=== PATIENT | male | born 1995 | race Caucasian/White ===

== ENCOUNTER 2017-06-03 19:33 | Emergency (ER) | payer OTHER ==
[~2017-06-03] VITALS: Ht 177.8 cm; Wt 54.4 kg
--- NOTE | 2017-06-03 19:40 | NUR ---
TO BED 6 A 22 YO MALE PATIENT BIBSELF FROM HOME, PT C/O "LT TESTICULAR PAIN X2 DAYS." VSS. NAD NOTED. AMBULATORY. COMFORT MEASURES RENDERED.
--- NOTE | 2017-06-03 19:45 | NUR ---
DR GARCIA AT BEDSIDE.
--- NOTE | 2017-06-03 19:50 | NUR ---
JONATHAN ALONZO AT BEDSIDE.
[2017-06-03 19:57] LABS: APPEARANCE,URINE Slightly Cloudy (CLEAR); BILIRUBIN,URINE Negative (NEGATIVE); BLOOD, URINE Moderate Ery/uL (NEGATIVE); COLOR,URINE Yellow (YELLOW); KETONES,URINE 40 (NEGATIVE); LEUKOCYTE ESTERASE ,URINE Negative (NEGATIVE); NITRITE, URINE Negative (NEGATIVE); PH,URINE 6.5 (5.0-8.0); PROTEIN,URINE Negative (NEGATIVE); UGLUCOSE Negative (NEGATIVE)
[2017-06-03 20:12] LABS: BACTERIA,URINE Few /HPF (None Seen); RBC,URINE 51-80 /HPF (0-2); SQUAMOUS EPITHELIAL CELL,UR Few /HPF (None Seen); URINE AMORPHOUS URATE Few /HPF (None Seen)
[2017-06-03] MEDS ORDERED: IV NS 0.9% 500 ML BAG IV ONE (20:30)
[2017-06-03] MEDS ORDERED: KETOROLAC TROMETHAMINE INJ 30 MG/ML VIAL IV ONE (20:30)
[2017-06-03] MEDS ORDERED: KETOROLAC TROMETHAMINE 15 MG/ML VIAL ONE (20:37)
--- NOTE | 2017-06-03 20:40 | NUR ---
STARTED A SALINE LOCK ON THE LAC G18, BLOOD DRAWN AND SENT TO LAB.
--- NOTE | 2017-06-03 20:44 | NUR ---
MEDICATED PATIENT ORDERED BY DR GARCIA.
[2017-06-03 20:46] LABS: BASOPHILS # (AUTO) 0.1 /CMM (0.0-0.2); BASOPHILS % (AUTO) 1.8 % (0.0-2.0); EOSINOPHILS # (AUTO) 0.1 /CMM (0.0-0.7); EOSINOPHILS % (AUTO) 1.4 % (0.0-6.0); HEMATOCRIT 40 % (39-51); HEMOGLOBIN 14.1 g/dL (13.5-17.5); LYMPHOCYTES # (AUTO) 2.5 /CMM (0.8-4.8); LYMPHOCYTES % (AUTO) 30.5 % (20.0-44.0); MEAN CORPUSCULAR HEMOGLOBIN 31 PG (26.0-33.0); MEAN CORPUSCULAR HGB CONC 35 g/dl (31.0-36.0); MEAN CORPUSCULAR VOLUME 88 fL (80-96); MONOCYTES # (AUTO) 0.7 /CMM (0.1-1.30); MONOCYTES % (AUTO) 8.5 % (2.0-12.0); NEUTROPHILS # (AUTO) 4.7 /CMM (1.8-8.9); NEUTROPHILS % (AUTO) 57.8 % (43.0-81.0); PLATELET COUNT (AUTO) 269 /CMM (150-450); RDW COEFFICIENT OF VARIATION 12.3 (11.5-15.0); RED BLOOD CELL COUNT(AUTO) 4.53 MIL/uL (4.5-6.0); WHITE BLOOD COUNT (AUTO) 8.1 K/uL (4.3-11.0)
[2017-06-03 21:09] LABS: CALCIUM, SERUM 9.4 mg/dL (8.5-10.1); CREATININE 1.1 mg/dL (0.6-1.3); POTASSIUM 3.6 mmol/L (3.5-5.1)
[2017-06-03] MEDS ORDERED: ONDANSETRON HCL/PF 4 MG/2 ML VIAL ONE (21:43)
[2017-06-03] MEDS ORDERED: TAMSULOSIN 0.4 MG CAP.SR.24H ONE (21:44)
[2017-06-03] MEDS ORDERED: HYDROMORPHONE INJ 0.5 MG/0.5 ML SYRINGE ONE (21:44)
[2017-06-03] MEDS ORDERED: ONDANSETRON HCL/PF 4 MG/2 ML VIAL IVP ONE (22:00)
[2017-06-03] MEDS ORDERED: HYDROMORPHONE INJ 2 MG/ML DISP.SYRIN IV ONE (22:00)
[2017-06-03] MEDS ORDERED: TAMSULOSIN 0.4 MG CAP.SR.24H PO ONE (22:00)
--- NOTE | 2017-06-03 22:16 | NUR ---
IV removed. Catheter intact and site benign. Pressure and 4x4 applied to site. No bleeding noted. Patient discharged to home in stable condition. Written and verbal after care instructions given. Patient verbalizes understanding of instruction. Patient is ambulatory with steady gait, accompanied by aunt. Instructed patient not to drive. vss. nad noted. no further complaints.
[2017-06-03 22:17] VITALS: BP 125/74
== END 2017-06-03 22:18 | disposition home or self-care (01) ==
LOC: ER 19:42
DX: N20.1 Calculus of ureter (principal)
CPT/HCPCS: 36415; 76870-TC; 80048-TC; 81000-TC; 85025-TC; 87086-TC; 87491; 87591; A4606; J1885; J2405; J7040; Z7610

== ENCOUNTER 2017-10-22 21:55 | Emergency (ER) | payer OTHER ==
[~2017-10-22] VITALS: Ht 175.3 cm; Wt 54.4 kg
[2017-10-22 22:05] VITALS: BP 109/69
[2017-10-22 22:29] LABS: APPEARANCE,URINE CLEAR (CLEAR); BILIRUBIN,URINE NEGATIVE (NEGATIVE); BLOOD, URINE TRACE Ery/uL (NEGATIVE); COLOR,URINE YELLOW (YELLOW); KETONES,URINE TRACE (NEGATIVE); LEUKOCYTE ESTERASE ,URINE NEGATIVE (NEGATIVE); NITRITE, URINE NEGATIVE (NEGATIVE); PROTEIN,URINE NEGATIVE (NEGATIVE); UGLUCOSE NEGATIVE (NEGATIVE)
[2017-10-22] MEDS ORDERED: HYDROCODONE/APAP 5/325MG 1 EACH TABLET ONE ×2 (22:36→23:55)
--- NOTE | 2017-10-22 22:39 | NUR ---
US TECH BEDSIDE
[2017-10-22 22:48] LABS: BACTERIA,URINE Rare /HPF (None Seen); MUCUS,URINE Few /LPF (None Seen); RBC,URINE 0-2 /HPF (0-2); SQUAMOUS EPITHELIAL CELL,UR Rare /HPF (None Seen); WBC,URINE 0-2 /HPF (0-3)
[2017-10-22] MEDS ORDERED: HYDROCODONE/APAP 5/325MG 1 EACH TABLET PO ONE (23:00)
[2017-10-22] MEDS ORDERED: AZITHROMYCIN 250 MG TABLET ONE (23:55)
[2017-10-22] MEDS ORDERED: CEFTRIAXONE 500 MG VIAL ONE (23:55)
[2017-10-22] MEDS ORDERED: ONDANSETRON 4 MG TAB.RAPDIS ONE (23:56)
[2017-10-22] MEDS ORDERED: LIDOCAINE 0.5% HCL 50 ML VIAL ONE (23:56)
[2017-10-23] MEDS ORDERED: HYDROCODONE/APAP 5/325MG 1 EACH TABLET PO ONE
[2017-10-23] MEDS ORDERED: ONDANSETRON 4 MG TAB.RAPDIS SL ONE
[2017-10-23] MEDS ORDERED: CEFTRIAXONE 1 G VIAL IM ONE
[2017-10-23] MEDS ORDERED: AZITHROMYCIN 250 MG TABLET PO ONE
== END 2017-10-23 00:14 | disposition home or self-care (01) ==
LOC: ER 22:00
DX: F17.200 Nicotine dependence, unspecified, uncomplicated (principal); N45.1 Epididymitis
CPT/HCPCS: 76870; 81001; 96372; 99285; 99406; A4606; J0696; J3490; Q0162; Z7610; 81000-TC

== ENCOUNTER 2019-04-10 03:03 | Emergency (ER) | payer MEDICAID, OTHER ==
[~2019-04-10] VITALS: Ht 177.8 cm; Wt 59.0 kg
--- NOTE | 2019-04-10 03:15 | NUR ---
PT AAOX4. AMBUALTORY. C/O BILAT EAR PRESSURE X4HRS. "I HAD A FEVER EARLIER AND I FELT PRESSURE IN MY EAR" PLACED ON MONITOR AND PULSE OX.
[2019-04-10] MEDS ORDERED: methylPREDNISolone SOD SUCC 125 MG/2ML VIAL IV ONE (04:00)
[2019-04-10] MEDS ORDERED: KETOROLAC TROMETHAMINE INJ 30 MG/ML VIAL IV ONE (04:00)
[2019-04-10] MEDS ORDERED: IV NS 0.9% 1,000 ML BAG IV ONE (04:00)
[2019-04-10] MEDS ORDERED: METOCLOPRAMIDE HCL 10 MG/2 ML VIAL IV ONE (04:00)
[2019-04-10] MEDS ORDERED: SUMATRIPTAN SUCCINATE 25 MG TABLET PO ONE (04:00)
[2019-04-10] MEDS ORDERED: KETOROLAC TROMETHAMINE 15 MG/ML VIAL ONE (04:11)
[2019-04-10] MEDS ORDERED: methylPREDNISolone SOD SUCC 125 MG/2ML VIAL ONE (04:11)
[2019-04-10] MEDS ORDERED: METOCLOPRAMIDE HCL 10 MG/2 ML VIAL ONE (04:12)
[2019-04-10] MEDS ORDERED: SUMATRIPTAN SUCCINATE 25 MG TABLET ONE (04:12)
--- NOTE | 2019-04-10 04:52 | NUR ---
Patient discharged to home in stable condition. Written and verbal after care instructions given. Patient verbalizes understanding of instruction and RX. IV removed. Catheter intact and site benign. Pressure and 4x4 applied to site. No bleeding noted. PT ambulatory with a steady gait.
[2019-04-10 04:53] VITALS: BP 124/68
== END 2019-04-10 04:54 | disposition home or self-care (01) ==
LOC: ER 03:04
DX: G43.909 Migraine, unspecified, not intractable, without status migrainosus (principal); F17.200 Nicotine dependence, unspecified, uncomplicated
CPT/HCPCS: 87804 ×2; 96374; 96375; 99283; J1885; J2765; J2930; J7030

== ENCOUNTER 2021-11-15 19:37 | Emergency (ER) | payer MEDICAID, OTHER ==
[~2021-11-15] VITALS: Ht 175.3 cm; Wt 65.8 kg
--- NOTE | 2021-11-15 20:20 | NUR ---
BIBS C/O RLQ PAIN XFEW MINS [employer]. -N/V/D. PT AWAKE A/OX3. TOLERATING R/A WELL WITH NO RESP DISTRESS OR SOB. SAFETY MEASURES IN PLACE.
--- NOTE | 2021-11-15 20:40 | NUR ---
PT TAKEN TO CT VIA KOBE
--- NOTE | 2021-11-15 20:45 | NUR ---
PT RETURNED TO ER BED [address]
[2021-11-15 20:46] LABS: BASOPHILS # (AUTO) 0.1 K/uL (0.0-0.2); BASOPHILS % (AUTO) 0.7 % (0.0-2.0); EOSINOPHILS % (AUTO) 1.9 % (0.0-6.0); HEMATOCRIT 44 % (39-51); LYMPHOCYTES # (AUTO) 2.9 K/uL (0.8-4.8); LYMPHOCYTES % (AUTO) 34.4 % (20.0-44.0); MEAN CORPUSCULAR HGB CONC 34 g/dl (31.0-36.0); MEAN CORPUSCULAR VOLUME 90 fL (80-96); MONOCYTES # (AUTO) 0.7 K/uL (0.1-1.30); MONOCYTES % (AUTO) 7.9 % (2.0-12.0); NEUTROPHILS # (AUTO) 4.7 K/uL (1.8-8.9); NEUTROPHILS % (AUTO) 55.1 % (43.0-81.0); PLATELET COUNT (AUTO) 289 K/uL (150-450); RED BLOOD CELL COUNT(AUTO) 4.87 MIL/uL (4.5-6.0); WHITE BLOOD COUNT (AUTO) 8.5 K/uL (4.3-11.0)
--- NOTE | 2021-11-15 21:00 | NUR ---
URINE COLLECTED AND SENT TO LAB
[2021-11-15 21:04] LABS: CALCIUM, SERUM 9.4 mg/dL (8.5-10.1); POTASSIUM 4.2 mmol/L (3.5-5.1)
[2021-11-15 21:12] LABS: ALBUMIN 4.6 g/dL (3.4-5.0); BILIRUBIN,DIRECT 0.1 mg/dL (0.0-0.2); BILIRUBIN,TOTAL 0.2 mg/dL (0.2-1.0); TOTAL PROTEIN, SERUM 8.6 g/dL (6.4-8.2)
[2021-11-15] MEDS ORDERED: IBUP-1957 PO (21:28)
[2021-11-15] MEDS ORDERED: TAMS-12 PO (21:28)
[2021-11-15] MEDS ORDERED: KETOROLAC TROMETHAMINE INJ 30 MG/ML VIAL IM ONE (21:30)
[2021-11-15 21:32] LABS: BILIRUBIN,URINE NEGATIVE (NEGATIVE); COLOR,URINE YELLOW (YELLOW); LEUKOCYTE ESTERASE ,URINE NEGATIVE (NEGATIVE); NITRITE, URINE NEGATIVE (NEGATIVE); PROTEIN,URINE NEGATIVE (NEGATIVE); UGLUCOSE NEGATIVE (NEGATIVE); UROBILINOGEN,URINE 0.2 EU/dL (0.2)
[2021-11-15] MEDS ORDERED: KETOROLAC TROMETHAMINE INJ 30 MG/ML VIAL ONE (21:47)
[2021-11-15 21:48] LABS: BACTERIA,URINE None seen /HPF (None Seen); RBC,URINE 0-2 /HPF (0-2); SQUAMOUS EPITHELIAL CELL,UR Few /HPF (None Seen); WBC,URINE 0-2 /HPF (0-3)
--- NOTE | 2021-11-15 21:53 | NUR ---
Patient discharged to home in stable condition. RX Written and verbal after care instructions given. Patient verbalizes understanding of instruction. PT ambulatory with a steady gait
[2021-11-15 21:54] VITALS: BP 129/83
== END 2021-11-15 21:55 | disposition home or self-care (01) ==
LOC: ER 19:53
DX: N20.0 Calculus of kidney (principal); F17.200 Nicotine dependence, unspecified, uncomplicated
CPT/HCPCS: 36415; 80048-TC; 80076-TC; 81001; 83690-TC; 85025-TC; J1885